=== PATIENT | female | born 1950 | race Two or more races ===

== ENCOUNTER 2019-03-05 19:43 | Emergency (ER) | payer OTHER, MEDICAID ==
[~2019-03-05] VITALS: Ht 157.5 cm; Wt 73.0 kg
[2019-03-05 20:52] VITALS: BP 153/91
[2019-03-05] MEDS ORDERED: ACETAMINOPHEN 325MG TABLET PO ONE (21:00)
[2019-03-05] MEDS ORDERED: BACITRACIN ZINC OINT UDPKT TOP ONE (21:00)
== END 2019-03-05 22:42 | disposition home or self-care (01) ==
LOC: ER 19:43
DX: S00.81XA Abrasion of other part of head, initial encounter (principal); M25.512 Pain in left shoulder; I10 Essential (primary) hypertension; V09.9XXA Pedestrian injured in unspecified transport accident, initial encounter; Y93.01 Activity, walking, marching and hiking; Y92.89 Other specified places as the place of occurrence of the external cause; Y99.8 Other external cause status
CPT/HCPCS: 73030; 99283; A4565

== ENCOUNTER 2022-02-20 04:28 | Emergency (ER) | payer OTHER, MEDICAID ==
[~2022-02-20] VITALS: Ht 144.8 cm; Wt 65.5 kg
[2022-02-20 05:03] VITALS: BP 134/81
[2022-02-20 05:28] LABS: BASOPHILS % 0.6 % (0.0-2.0); EOSINOPHILS % 3.2 % (0.0-5.0); HEMATOCRIT. 36.6 % (36.0-48.0); HEMOGLOBIN. 12.4 g/dL (12.0-16.0); LYMPHOCYTES % 23.9 % (20.0-50.0); MEAN CORPUSCULAR HEMOGLOBIN 30.9 pg (28.0-32.0); MEAN CORPUSCULAR VOLUME 90.9 fL (81.0-99.0); MEAN PLATELET VOLUME 8.4 fl (7.4-10.4); MONOCYTES % 9.2 % (2.0-8.0); NEUTROPHILS % 63.1 % (40.0-76.0); PLATELET 215 x1000/uL (130-400); RED BLOOD CELL COUNT 4.02 mill/uL (4.2-5.4); RED CELL DISTRIBUTION WIDTH 14.6 % (11.6-14.6)
[2022-02-20 05:44] LABS: CHLORIDE 99 mEq/L (98-107)
[2022-02-20] MEDS ORDERED: ACETAMINOPHEN 325MG TABLET PO ONE (05:45)
[2022-02-20 06:11] LABS: CLARITY URINE CLEAR (CLEAR); COLOR URINE YELLOW (YELLOW); KETONES URINE NEGATIVE (NEGATIVE); LEUKOCYTE ESTERASE URINE 1+ (NEGATIVE); NITRITE URINE NEGATIVE (NEGATIVE); OCCULT BLOOD URINE NEGATIVE (NEGATIVE); PH URINE 8.5 (4.5-8.0); PROTEIN URINE NEGATIVE (NEGATIVE); SPECIFIC GRAVITY URINE 1.011 (1.005-1.030); UROBILINOGEN URINE 0.2 E.U./dL (0.2-1.0)
[2022-02-20] MEDS ORDERED: HYDR-4001 MT (08:30)
[2022-02-20] MEDS ORDERED: IBUP-2029 MT (08:30)
== END 2022-02-20 09:18 | disposition home or self-care (01) ==
LOC: ER 04:28
DX: R10.11 Right upper quadrant pain (principal); C79.9 Secondary malignant neoplasm of unspecified site; I10 Essential (primary) hypertension
CPT/HCPCS: 36415; 74176; 76705; 80053; 81003; 85025; 93005; 99285